=== PATIENT | male | born 1990 | race Caucasian/White ===

== ENCOUNTER → 2019-03-18 | Outpatient (CLI) | payer OTHER ==
[~2019-03-18] MED LIST: PROTONIX 40MG T40 MG PO; ZOFRAN 4MG T4 MG/TAB PO
[2019-03-19 16:10] LABS: IMMUNOGLOBULIN A 328 mg/dL (63-484)
[2019-03-20 16:06] LABS: TISSUE TRANSGLUTAMINASE IGA <1.2 U/mL (())
== END ==
LOC: ZCOL.LAB 16:48
PROVIDERS: Family Medicine
DX: R19.7 Diarrhea, unspecified (principal); R68.89 Other general symptoms and signs

== ENCOUNTER → 2019-03-30 | Outpatient (CLI) | payer OTHER | LOC: COL.LAB 08:50 | DX: R10.13 Epigastric pain (principal); R19.7 Diarrhea, unspecified ==

== ENCOUNTER → 2019-04-28 | Emergency (ER) | payer OTHER ==
[~2019-04-28] VITALS: Ht 177.8 cm; Wt 70.9 kg
[~2019-04-28] MED LIST changes: +PHENERGAN 25 TA25 MG PO
[2019-04-28 06:22] VITALS: BP 137/82; TEMP 98.8
[2019-04-28 07:28] LABS: BASO % 0.4 % (0.0-2.0); EOS % 0.4 % (0-4.0); GRAN # 5.4 (1.4-6.5); GRAN % 69.3 % (42.2-75.2); HEMATOCRIT 41.7 % (42.0-52.0); HEMOGLOBIN 13.9 g/dl (13.5-18.0); LYMPH # 1.8 (1.2-3.4); LYMPH % 22.8 % (20.0-51.0); MEAN CELL VOLUME 85 fl (80.0-100.0); MEAN CORPUSCULAR HEMOGLOBIN 28 pg (27.0-31.0); MEAN CORPUSCULAR HGB CONC 33 g/dl (33.0-37.0); MEAN PLATELET VOLUME 9.9 fl (7.4-10.4); MONO # 0.5 (0.1-0.6); MONO % 6.7 % (1.7-9.3); PLATELET COUNT 256 K/mm3 (130-400); RED BLOOD COUNT 4.89 M/mm3 (4.20-5.60); REDCELL DISTRIBUTION WIDTH-CV 12.9 % (11.5-14.5)
[2019-04-28 07:30] LABS: ALBUMIN 5.1 gm/dL (3.5-5.0); CREATININE, serum 0.72 (0.66-1.25); POTASSIUM 4.2 mmol/L (3.4-5.0); TOTAL PROTEIN 8.4 gm/dL (6.4-8.2)
[2019-04-28 08:23] VITALS: PULSE 81
== END ==
LOC: COL.ER 06:11
PROVIDERS: Emergency Medicine
DX: R19.7 Diarrhea, unspecified (principal); R11.0 Nausea; R10.12 Left upper quadrant pain